=== PATIENT | male | born 1980 | race Caucasian/White ===

== ENCOUNTER → 2018-06-11 14:03 | Outpatient (CLI) | payer BC, SELFPAY ==
--- NOTE | 2018-06-11 14:19 | RAD_ITS ---
STUDY: X-RAY - CERVICAL SPINE REASON FOR EXAM: Male, 37 years old. Neck pain TECHNIQUE: 6 view(s) of the cervical spine were obtained. COMPARISON: None FINDINGS: Normal anterior atlantoaxial articulation. Normal odontoid process. Normal cervical lordosis. No vertebral body fracture. Posterior elements are intact. Intervertebral disc spaces are relatively preserved. Facet joints are in normal alignment. Uncovertebral joints are unremarkable. No significant neuroforaminal canal narrowing. The soft tissue structures are unremarkable. RAD/Cerv Spine 4 or 5 Views IMPRESSION: No evidence of acute injury to the cervical spine. Electronically Signed: Franklyn Caldera MD at 4:02 EDT Tel , Service support ,
--- NOTE | 2018-06-11 14:20 | RAD_ITS ---
STUDY: X-RAY - LEFT HAND REASON FOR EXAM: Male, 37 years old. Nontraumatic left hand and wrist pain. TECHNIQUE: 3 view(s) of the hand. COMPARISON: None. FINDINGS: Normal radiocarpal articulation. Normal distal radioulnar joint. Normal visualized carpal bones. Normal carpal articulations Mild to moderate joint space narrowing of the first carpometacarpal and triscaphe joints with associated periarticular erosions. Normal second through fifth carpometacarpal joints. Normal metacarpi. Normal metacarpophalangeal joint of the thumb. Normal interphalangeal joint of the thumb. Normal proximal and distal phalanges of the thumb. Normal metacarpophalangeal joints of the second through fifth fingers. Normal proximal and distal interphalangeal joints of the second through fifth fingers. Normal phalanges of the second through fifth fingers. The soft tissue structures are unremarkable. RAD/Hand Min 3 Views IMPRESSION: Osteoarthritis of the first carpometacarpal and triscaphe joints with suggestion of superimposed periarticular inflammatory change. Electronically Signed: Franklyn Caldera MD at 3:36 EDT Tel , Service support ,
[2018-06-11 16:30] LABS: Absolute Lymphocyte Count 1.94 X10^3/ul (0.83-4.51); Absolute Neutrophil Count 5.7 X10^3/uL (2.0-7.7); Basophil# 0.06 X10^3/uL; Basophil% 0.7 % (0-1); Eosinophil# 0.21 X10^3/uL; Eosinophils% 2.3 % (0-5); Hematocrit 45.5 % (40-54); Hemoglobin 15.1 g/dl (13.0-16.5); Lymphocyte # 1.94 X10^3/ul (4.0); Lymphocyte % 21.5 % (19-41); Mean Corp Hgb Conc 33.2 g/gl (32-36); Mean Corpuscular Hgb 30.3 pg (27.0-32.0); Mean Corpuscular Volume 91.2 fL (80-94); Mean Platelet Vol. 11.6 fl (6.2-12.0); Monocyte% 12.2 % (0-10); Neutrophil # 5.71 X10^3/uL (2.7-7.7); Neutrophil % 63.2 % (47-70); Platelet Count 282 K/mm3 (150-450); RBC Distribution Width CV 13.3 % (11.6-14.6); RBC Distribution Width SD 43.8 fl (35.1-43.9); Red Blood Count 4.99 M/mm3 (4.6-6.2)
[2018-06-11 16:34] LABS: Erythrocyte Sedimentation Rate 14 mm/hr (0-15); POSITIVE COUNT NO; POSITIVE DIFFERENTIAL NO; POSITIVE MORPHOLOGY NO
[2018-06-11 16:37] LABS: AST(SGOT) 28 U/L (15-37); Alanine Aminotransfer ALT/SGPT 38 U/L (16-61); Alkaline Phosphatase 96 U/L (45-117); Anion Gap 4 (5-15); BUN 11 mg/dL (7-18); CRP 6.84 mg/L (0.0-3.0); Calcium,Total 8.5 mg/dL (8.5-10.1); Chloride 106 mmol/L (98-107); EST Glomerular Filtration Rate 90 mL/min (>60); Est Glom Filt Rate - Afr Amer 109 mL/min (>60); Glucose 104 mg/dL (74-106); Potassium 3.9 mmol/L (3.5-5.1); Rheumatoid Factor < 10.0 IU/mL (<15); Sodium Level 138 mmol/L (136-145); Thyroid Stim Hormone (TSH) 1.18 uIU/mL (0.358-3.74); Uric Acid 5.8 mg/dL (3.5-7.2)
[2018-06-11 16:58] LABS: Vitamin D,25 Hydroxy 21.9 ng/mL (29.95-100.01)
[2018-06-14 14:11] LABS: ANTINUCLEAR ANTIBODIES DIRECT Negative (Negative)
[2018-06-18 13:50] LABS: CCP IgG Antibodies 8 units (0-19); HLA B27 Negative (.)
== END ==
PROVIDERS: Family Provider Family Medicine; PCP Family Medicine; Referring Provider Family Medicine; Visit Provider Family Medicine
DX: M25.532 Pain in left wrist (principal); M54.2 Cervicalgia
CPT/HCPCS: 36415; 72050; 73130; 80053; 81374; 82306; 84443; 84550; 85025; 85652; 86038; 86140; 86200; 86431

== ENCOUNTER 2021-05-21 08:46 | Outpatient (CLI) | payer BC, SELFPAY ==
[2021-05-21 10:07] LABS: Anion Gap 4 (5-15); BUN 13 mg/dL (7-18); BUN/Creat Ratio 13.9 RATIO (10-20); CRP 5.97 mg/L (0.0-3.0); Calcium,Total 9.4 mg/dL (8.5-10.1); Chloride 106 mmol/L (98-107); Cholesterol 183 mg/dL (200); Creatinine, Serum 0.94 mg/dL (0.70-1.30); EST Glomerular Filtration Rate 95 mL/min (>60); Est Glom Filt Rate - Afr Amer 115 mL/min (>60); Glucose 99 mg/dL (74-106); High Density Lipoprotein 46 mg/dL; Potassium 4.4 mmol/L (3.5-5.1); Sodium Level 136 mmol/L (136-145); T4 Free Direct 1.07 ng/dL (0.76-1.46); Thyroid Stim Hormone (TSH) 2.04 uIU/mL (0.358-3.74); Triglycerides 62 mg/dL; Very Low Density Lipoprotein 12 mg/dL (5-40)
== END 2021-05-21 23:59 | disposition home or self-care (01) ==
LOC: MFPLAB 08:48
PROVIDERS: PCP Family Medicine; Referring Provider Family Medicine; Visit Provider Family Medicine
DX: Z13.1 Encounter for screening for diabetes mellitus (principal); Z13.220 Encounter for screening for lipoid disorders; E04.9 Nontoxic goiter, unspecified; R79.82 Elevated C-reactive protein (CRP)
CPT/HCPCS: 36415; 80048; 80061; 84439; 84443; 86140

== ENCOUNTER → 2022-01-02 | Outpatient (CLI) | payer OTHER, SELFPAY ==
--- NOTE | 2022-01-02 14:36 | RAD_ITS ---
STUDY: X-RAY - LEFT HAND REASON FOR EXAM: Male, 41 years old. Pain and swelling TECHNIQUE: 3 view(s) of the hand. COMPARISON: None. FINDINGS: Normal radiocarpal articulation. Normal distal radioulnar joint. Normal visualized carpal bones. Normal carpal articulations Normal carpometacarpal articulation of the thumb. Normal second through fifth carpometacarpal joints. Normal metacarpi. Normal metacarpophalangeal joint of the thumb. Normal interphalangeal joint of the thumb. Normal proximal and distal phalanges of the thumb. Normal metacarpophalangeal joints of the second through fifth fingers. Normal proximal and distal interphalangeal joints of the second through fifth fingers. Normal phalanges of the second through fifth fingers. The soft tissue structures are unremarkable. RAD/Hand Min 3 Views IMPRESSION: Normal x-ray examination of the hand. Electronically Signed: Darion Bauman MD at 15:03 EDT ,
--- NOTE | 2022-01-02 14:41 | RAD_ITS ---
STUDY: X-RAY - RIGHT HAND REASON FOR EXAM: Male, 41 years old. Pain and swelling TECHNIQUE: 3 view(s) of the hand. COMPARISON: None. FINDINGS: Normal radiocarpal articulation. Normal distal radioulnar joint. Normal visualized carpal bones. Normal carpal articulations Normal carpometacarpal articulation of the thumb. Normal second through fifth carpometacarpal joints. Normal metacarpi. There is degenerative arthrosis of the metacarpophalangeal (MCP) joints. Normal interphalangeal joint of the thumb. Normal proximal and distal phalanges of the thumb. Normal metacarpophalangeal joints of the second through fifth fingers. Normal proximal and distal interphalangeal joints of the second through fifth fingers. Normal phalanges of the second through fifth fingers. The soft tissue structures are unremarkable. RAD/Hand Min 3 Views IMPRESSION: First MCP joint arthrosis, no demonstrated fracture or suspicious osseous lesion Electronically Signed: Darion Bauman MD at 15:03 EDT ,
[2022-01-02 18:03] LABS: Absolute Lymphocyte Count 1.89 X10^3/uL (0.83-4.51); Absolute Neutrophil Count 5.6 X10^3/uL (2.0-7.7); Basophil# 0.09 X10^3/uL; Eosinophil# 0.33 X10^3/uL; Eosinophils% 3.7 % (0-5); Hematocrit 45.8 % (40-54); Hemoglobin 15.9 g/dL (13.0-16.5); Lymphocyte # 1.89 X10^3/ul (0.83-4.51); Lymphocyte % 21.4 % (19-41); Mean Corp Hgb Conc 34.7 g/dL (32-36); Mean Corpuscular Volume 89.3 fL (80-94); Mean Platelet Vol. 11.2 fl (6.2-12.0); Monocyte# 0.94 X10^3/uL; Monocyte% 10.6 % (0-10); NRBC Flagged by Analyzer 0 % (0-5); Neutrophil # 5.57 X10^3/uL (2.7-7.7); Platelet Count 316 K/mm3 (150-450); RBC Distribution Width CV 12.4 % (11.6-14.6); RBC Distribution Width SD 40.7 fl (35.1-43.9); Red Blood Count 5.13 M/mm3 (4.6-6.2); White Blood Count 8.9 K/mm3 (4.4-11.0)
[2022-01-02 18:26] LABS: Erythrocyte Sedimentation Rate 18 mm/hr (0-20)
[2022-01-02 18:46] LABS: ALB/GLOB Ratio 0.9 RATIO (0.9-2.4); AST(SGOT) 22 U/L (15-37); Alanine Aminotransfer ALT/SGPT 35 U/L (16-61); Albumin, Serum 3.6 g/dL (3.2-5.0); Alkaline Phosphatase 98 U/L (45-117); Anion Gap 9 (5-15); BUN 12 mg/dL (7-18); BUN/Creat Ratio 12.4 RATIO (10-20); CRP 9.39 mg/L (0.0-3.0); Calcium,Total 8.7 mg/dL (8.5-10.1); Chloride 105 mmol/L (98-107); Creatinine, Serum 0.97 mg/dL (0.70-1.30); EST Glomerular Filtration Rate 91 mL/min (>60); Est Glom Filt Rate - Afr Amer 110 mL/min (>60); Glucose 117 mg/dL (74-106); Potassium 3.8 mmol/L (3.5-5.1); Protein, Total 7.6 g/dL (6.4-8.2); Rheumatoid Factor < 10.0 IU/mL (<15); Sodium Level 138 mmol/L (136-145); Uric Acid 6.4 mg/dL (3.5-7.2)
[2022-01-04 15:13] LABS: ANTINUCLEAR ANTIBODIES DIRECT Negative (Negative)
[2022-01-10 14:31] LABS: CCP IgG Antibodies 4 units (0-19)
== END | disposition home or self-care (01) ==
LOC: MTLAB 14:25
PROVIDERS: PCP Family Medicine; Referring Provider Family Medicine; Visit Provider Family Medicine
DX: M19.041 Primary osteoarthritis, right hand (principal); M79.642 Pain in left hand
CPT/HCPCS: 36415; 73130; 80053; 84550; 85025; 85652; 86038; 86140; 86200; 86431

== ENCOUNTER 2022-08-04 02:27 | Emergency (ER) | payer OTHER, SELFPAY ==
[2022-08-04 02:28] VITALS: BP 140/86; PULSE 103; RESP 18; TEMP 36.1; O2SAT 99; BMI 27.0
[2022-08-04] MEDS: Ondansetron 4 MG/2 ML Vial IV (02:42)
[2022-08-04] MEDS: Morphine 4 MG/ML Syringe IV (02:42)
[2022-08-04] MEDS: Ketorolac 15 MG/ML Vial IV (02:43)
--- NOTE | 2022-08-04 03:08 | EDS_ITS ---
HPI History of Present Illness Chief Complaint: Back Detail of Chief Complaint: Initially low back pain now neck pain Informant: patient Onset/Context/Timing Onset: Days Mechanism/Context: other (Pulling a rapid lifting lawn more etc.) Quality of Pain: Dull and Aching Location: Initial low back. Now complains of by lateral posterior neck pain Current Severity: Mild Maximum Severity: Moderate Worsened by: Nothing Relieved by: Nothing Associated Symptoms Associated Symptoms: Negative for Parasthesias, Weakness, Loss of function, Inability to ambulate, Loss of consciousness or Amnesia Narrative Narrative: Patient is a 41-year-old male with no significant past medical history. He is on no medication. He has allergy to penicillin. He presents with bilateral posterior neck pain. This started last Thursday. There is no history of direct trauma. Patient did do pulling, pushing and lifting. Initially he had low back pain. He now complains of bilateral neck pain. Nothing alleviates the pain. He denies fever, chills night sweats. He does report occipital head pain. He denies ocular, visual auditory symptoms. He denies paresthesia, anesthesia or motor weakness. He denies problems with coordination or balance. He denies problems with speech or swallowing. He denies chest pain or shortness of breath. He denies nausea, vomiting diarrhea. He denies urologic. Prior similar symptoms: No Recent Illness/Hospitalization: No [facility] Medical History Osteoarthritis Home Medications hydrocodone-acetaminophen 5-325mg 5mg-325mg 1 tab PO Q6H PRN PRN Pain 3 days #10 TABLETS 08/04/22 [Rx Last Taken Unknown] Allergy/AdvReac Type Severity Reaction Status Date / Time Penicillins Allergy Rash Verified 08/04/22 02:39 Surgical History History of appendectomy S/P ACL surgery Social History (Updated 08/04/22 @ 03:[address] Mikey Gallego MD) household members: other Smoking Status: Never smoker ROS ROS ED Constitutional Constitutional ED: Denies chills, fever(s), subjective, sweats or weight loss Eyes Eyes: Denies blurry vision or change in vision ENT ENT ED: Denies ear pain, rhinorrhea or sore throat Cardiovascular Cardiovascular: Denies chest pain or palpitations Respiratory/Chest Respiratory/Chest: Denies cough, dyspnea or dyspnea on exertion Gastrointestinal Gastrointestinal: Denies abdominal pain, nausea or vomiting Genitourinary Genitourinary ED: Reports other Details: He denies incontinence of urine or stool. He denies urinary retention. ; Denies dysuria, hematuria or urinary frequency Musculoskeletal Musculoskeletal: Reports back pain, myalgias and neck pain; Denies arthralgias Integumentary Denies rash Neurologic Neurologic: Denies headache(s), paresthesias or weakness Psychiatric Psychiatric: Denies anxiety Hematologic/Lymphatic Hematologic/Lymphatic: Denies easy bleeding or easy bruising EXAM Physical Exam Const Vital Signs: 08/04/22 02:28 Temperature 97 F L Temperature Source Temporal Pulse Rate 103 H Respiratory Rate 18 Blood Pressure 140/86 H Blood Pressure Mean 104 Pulse Ox 99 Oxygen Delivery Method Room Air Positive well nourished and well developed General Appearance ED: well developed and NAD HEENT HEENT Narrative: Head is normocephalic. Ears are normal. Nares are patent. Posterior pharynx normal. Mucosas moist atraumatic Eyes PERRL and EOMs intact bilaterally Neck full ROM Neck Narrative: There is pain no patient right and left paracervical area as well as right and left trapezius area. Patient has pain with rotation, flexion extension but does have full range of motion. Trachea is midline. There is no JVD. There is no lymphadenopathy. Resp normal respiratory effort and clear to auscultation bilaterally Cardio regular rhythm, S1 normal heart sound, S2 normal heart sound and no murmurs Rate: regular rate GI normal to inspection, nondistended, normoactive bowel sounds, non-tender, non- distended and no masses Palpation: soft Back/Spine normal to inspection and no thoracic nor lumbar tenderness Extremity normal to inspection and full ROM Neuro oriented x3, CN's II-XII intact bilaterally, moves all extremities, no focal motor deficits and no sensory deficits noted [place] Coma Scale: document GCS findings Spontaneous Obeys Commands Oriented 15 Sensorium / Orientation: alert Deep Tendon Reflexes: Rt Triceps (C7): 1+, Lt Triceps (C7): 1+, Rt Biceps (C5, C6): 1+, Lt Biceps (C5, C6): 1+, Rt Brachioradialis (C6): 1+, Lt Brachioradialis (C6): 1+, Rt Patellar (L4): 1+, Lt Patellar (L4): 1+, Rt Ankle (S1): 1+ and Lt Ankle (S1): 1+ Deep Tendon Reflexes Back: Rt Patellar (L4): 1+, Lt Patellar (L4): 1+, Rt Ankle (S1): 1+ and Lt Ankle (S1): 1+ Plantar Reflex: Downgoing: bilateral (There is no clonus either) Psych Psych Narrative: Mood is flat affect is depressed Skin no rashes or lesions noted, no wounds, skin turgor normal and no jaundice MDM MDM MDM Narrative Medical decision making narrative: Patient has taken Tylenol and NSAIDs with no improvement. IV was established. He was treated with IV cuter relic, morphine and Zofran for nausea. Vital signs were remarkable for slightly elevated blood pressure and heart rate. History and physicals consistent with muscular pain. She has no history of direct trauma imaging is not required. Furthermore he has a normal neurologic exam. Treatment and Re-Evaluation Narrative: Patient was reassessed at 0323. Patient reports marked improvement. He is discharged home with prescription for [place]. Discharge Plan Triage Chief Complaint: Back ED Provider: Mikey Gallego Dx/Rx/DC Orders Clinical Impression: Acute cervical myofascial strain, Elevated blood pressure reading without diagnosis of hypertension, Sinus tachycardia Instructions: ED Hypertension, To Be Confirmed, ED Neck Sprain or Strain Prescriptions: New hydrocodone-acetaminophen [hydrocodone-acetaminophen] 5-325 mg tablet 1 tab PO Q6H PRN PRN (Reason: Pain) 3 Days Qty: 10 0RF Primary Care Provider: Afshin Terrell Referrals: Afshin Terrell MD [Primary Care Provider] - 1 Week if not improving Activity Restrictions/Additional Instructions: 1. Apply ice to area of discomfort 6-10 times a day for the next 3 to 5 days. 2. Avoid activity that causes you to have increased pain 3. Take medication as prescribed 4. Take either for ibuprofen tablets every 8 hours or 2 Aleve tablets every 12 hours for the next 3 to 5 days Disposition Disposition: Home, Self Care
== END 2022-08-04 03:40 | disposition home or self-care (01) ==
PROVIDERS: Emergency Provider Emergency Medicine; PCP Family Medicine; Visit Provider Emergency Medicine
DX: S16.1XXA Strain of muscle, fascia and tendon at neck level, initial encounter (principal); R51.9 Headache, unspecified; M54.50 Low back pain, unspecified; R03.0 Elevated blood-pressure reading, without diagnosis of hypertension; R11.0 Nausea; R00.0 Tachycardia, unspecified; X50.0XXA Overexertion from strenuous movement or load, initial encounter
CPT/HCPCS: 96374; 96375; 99282; J2405